=== PATIENT | male | born 1955 | race Caucasian/White ===

== ENCOUNTER 2022-05-20 13:59 | Outpatient (CLI) | payer OTHER | END 2022-05-20 14:00 | disposition home or self-care (01) | LOC: BICCT 13:59 | PROVIDERS: ATTEND Neurological Surgery | DX: M54.50 Low back pain, unspecified (principal); M48.061 Spinal stenosis, lumbar region without neurogenic claudication; M51.36 Other intervertebral disc degeneration, lumbar region; M48.07 Spinal stenosis, lumbosacral region; M51.37 Other intervertebral disc degeneration, lumbosacral region | CPT/HCPCS: 72131 ==

== ENCOUNTER 2023-08-25 12:49 | Inpatient (IN) | payer OTHER, MEDICARE ==
[2023-08-25] MEDS ORDERED: Ondansetron PF 4 MG/2 ML Vial ONE (14:03)
[2023-08-25] MEDS ORDERED: Morphine 4 MG/ML VIAL ONE (14:03)
[2023-08-25] MEDS ORDERED: Ipratropium/Albuterol 3 ML NEB NEB PRN (14:34)
[2023-08-25] MEDS ORDERED: traMADol HCl 50 MG TAB PO PRN (14:34)
[2023-08-25] MEDS ORDERED: Glucagon 1 MG/ML KIT IM PRN (14:34)
[2023-08-25] MEDS ORDERED: Ondansetron ODT 4 MG TAB PO PRN (14:34)
[2023-08-25] MEDS ORDERED: Ondansetron PF 4 MG/2 ML Vial IVP PRN (14:34)
[2023-08-25] MEDS ORDERED: Dextrose 5% in Water 1,000 ML IV PRN (14:34)
[2023-08-25] MEDS ORDERED: Methocarbamol 500 MG TAB PO PRN (14:34)
[2023-08-25] MEDS ORDERED: Dextrose 50% Abboject 50 ML SYRINGE SLOW IVP PRN (14:34)
[2023-08-25] MEDS ORDERED: Acetaminophen 325 MG TAB PO PRN (14:34)
[2023-08-25 14:56] LABS: #Basophils 0.1 thou/uL (0.0-0.2); #Eosinphils 0.1 thou/uL (0.0-0.7); #Monocytes 0.8 thou/uL (0.11-0.59); #Neutrophils 12.8 thou/uL (1.40-6.50); %Basophils 0.3 % (0.0-1.0); %Eosinophils 0.5 % (0.0-10.0); %Lymphocytes 9.7 % (21.0-51.0); %Monocytes 5.2 % (0.0-10.0); %Neutrophils 83.8 % (42.0-75.0); Hematocrit 50.8 % (42.0-52.0); Hemoglobin 17.1 g/dL (14.0-18.0); Mean Corpuscular HGB CONC 33.7 g/dL (32.0-36.0); Mean Corpuscular Hemoglobin 31.4 pg (27.0-31.0); Mean Corpuscular Volume 93.4 fl (78.0-98.0); Mean Platelet Volume 9.5 fL (7.4-10.4); Platelet Count 226 10x3/uL (130-400); RBC Distribution Width 12.1 % (11.5-14.5); Red Blood Cell (RBC) Count 5.44 mill/uL (4.70-6.10); White Blood Cell (WBC) Count 15.3 10x3/uL (4.8-10.8)
[2023-08-25 15:07] LABS: Prothrombin Time 13.3 sec (12.0-14.7)
[2023-08-25 15:08] LABS: PTT 32.9 sec (22.9-36.1)
[2023-08-25 15:23] LABS: ALT (SGPT) 38 U/L (8-55); AST (SGOT) 28 U/L (5-34); Albumin 4.5 g/dL (3.4-4.8); Alkaline Phosphatase 85 U/L (40-110); Anion Gap 14 mmol/L (10-20); BUN (Urea Nitrogen) 12 mg/dL (8.4-25.7); Bilirubin, Total 0.6 mg/dL (0.2-1.2); Calc. Creatinine Clearance 0 mL/min (70-130); Calcium 9.6 mg/dL (7.8-10.44); Carbon Dioxide 22 mmol/L (23-31); Chloride 104 mmol/L (98-107); Estimated GFR 76; Globulin 3.1 g/dL (2.4-3.5); Glucose 141 mg/dL (80-115); Potassium 4.1 mmol/L (3.5-5.1); Protein, Total 7.6 g/dL (5.8-8.1); Sodium 136 mmol/L (136-145)
[2023-08-25] MEDS ORDERED: Morphine 2 MG/ML VIAL ONE (16:11)
[2023-08-25] MEDS ORDERED: HYDROcodone/Acetaminophen 5/325 mg Tablet ONE (16:11)
[2023-08-25] MEDS: HYDROcodone/Acetaminophen 5/325 mg Tablet PO PRN (16:14)
[2023-08-25] MEDS: Morphine 2 MG/ML VIAL SLOW IVP PRN (16:15)
[2023-08-25] MEDS ORDERED: Boostrix 0.5 ML (Tdap) VIAL (>/=7 yrs of age) ONE (16:22)
[2023-08-25] MEDS: TETANUS, DIPHTHERIA TOX,ADULT (TDVAX) 0.5 ML VIAL IM ONE (16:37)
[2023-08-25 20:35] VITALS: BMI 26.4
[2023-08-26 04:01] LABS: #Eosinphils 0.2 thou/uL (0.0-0.7); #Monocytes 1.1 thou/uL (0.11-0.59); #Neutrophils 7.2 thou/uL (1.40-6.50); %Basophils 0.4 % (0.0-1.0); %Eosinophils 1.4 % (0.0-10.0); %Lymphocytes 19.8 % (21.0-51.0); %Monocytes 10.4 % (0.0-10.0); %Neutrophils 67.6 % (42.0-75.0); Hematocrit 42.2 % (42.0-52.0); Hemoglobin 14.6 g/dL (14.0-18.0); Mean Corpuscular HGB CONC 34.6 g/dL (32.0-36.0); Mean Corpuscular Hemoglobin 31.4 pg (27.0-31.0); Mean Corpuscular Volume 90.8 fl (78.0-98.0); Mean Platelet Volume 9.1 fL (7.4-10.4); Platelet Count 187 10x3/uL (130-400); Red Blood Cell (RBC) Count 4.65 mill/uL (4.70-6.10); White Blood Cell (WBC) Count 10.6 10x3/uL (4.8-10.8)
[2023-08-26 04:29] LABS: ALT (SGPT) 28 U/L (8-55); AST (SGOT) 17 U/L (5-34); Albumin 3.8 g/dL (3.4-4.8); Alkaline Phosphatase 65 U/L (40-110); Anion Gap 12 mmol/L (10-20); BUN (Urea Nitrogen) 12 mg/dL (8.4-25.7); Bilirubin, Total 0.8 mg/dL (0.2-1.2); Calc. Creatinine Clearance 81 mL/min (70-130); Calcium 8.8 mg/dL (7.8-10.44); Carbon Dioxide 27 mmol/L (23-31); Chloride 101 mmol/L (98-107); Estimated GFR 76; Globulin 2.4 g/dL (2.4-3.5); Glucose 133 mg/dL (80-115); Potassium 4.2 mmol/L (3.5-5.1); Protein, Total 6.2 g/dL (5.8-8.1); Sodium 136 mmol/L (136-145)
[2023-08-26] MEDS ORDERED: CEFAZOLIN 2 GM in Sodium Chloride 0.9% 100 ML IVPB SCH (07:30)
[2023-08-26] MEDS ORDERED: fentaNYL PF 100 MCG/2 ML SYRINGE ONE (12:12)
[2023-08-26] MEDS ORDERED: PROPOFOL 20 ML ONE (12:12)
[2023-08-26] MEDS ORDERED: Lidocaine 1% PF 5 ML VIAL ONE (12:13)
[2023-08-26] MEDS ORDERED: Sodium Chloride 0.9% 100 ML ONE (12:21)
[2023-08-26] MEDS ORDERED: CEFAZOLIN 2 GM VIAL ONE (12:21)
[2023-08-26] MEDS ORDERED: fentaNYL 50 mcg/mL 1 mL Vial ONE (13:08)
[2023-08-26] MEDS ORDERED: Midazolam HCl 2 mg/2 ml Vial ONE (13:09)
[2023-08-26] MEDS ORDERED: Lidocaine 1% MPF 2 ML VIAL ONE (13:12)
[2023-08-26] MEDS ORDERED: Ropivacaine 0.5% HCl/PF (150 MG/30 ML VIAL) ONE (13:25)
[2023-08-26] MEDS ORDERED: Dexamethasone 4 mg/ml Vial ONE (14:18)
[2023-08-26] MEDS ORDERED: Ondansetron PF 4 MG/2 ML Vial ONE (14:18)
[2023-08-26] MEDS ORDERED: HYDROmorphone 2 MG/ML VIAL SLOW IVP PRN (14:30)
[2023-08-26] MEDS ORDERED: Promethazine HCl 25 MG/ML VIAL IM PRN (14:30)
[2023-08-26] MEDS ORDERED: Ondansetron HCl/PF 4 MG/2 ML Vial IVP PRN (14:30)
[2023-08-26 15:43] VITALS: BP 127/79; TEMP 98.1
== END 2023-08-26 16:32 | disposition home or self-care (01) | DRG 512 ==
LOC: ERS 12:49 → OBSVTOIN 14:42 → ERHOLD 14:42 → MSONC 17:40
PROVIDERS: ADMIT Surgery; ATTEND Surgery
PROC: 0PSH04Z Reposition Right Radius with Internal Fixation Device, Open Approach (ICD-10-PCS; principal; 2023-08-26)
DX: S52.571A Other intraarticular fracture of lower end of right radius, initial encounter for closed fracture (principal); S52.611A Displaced fracture of right ulna styloid process, initial encounter for closed fracture; W11.XXXA Fall on and from ladder, initial encounter; Z88.8 Allergy status to other drugs, medicaments and biological substances; Z79.899 Other long term (current) drug therapy; I48.91 Unspecified atrial fibrillation; Z98.890 Other specified postprocedural states
CPT/HCPCS: 29105; 36415; 71045; 80053; 85025; 85610; 85730; 86850; 86900; 86901; 90714; 90715; 96374; 96375; 96376; C1713; G0378; J1100; J2250; J2270; J2272; J2405; J2704; J2795; J3010; J3490